=== PATIENT | male | born 1965 | race Caucasian/White ===

== ENCOUNTER 2021-05-14 15:33 | Outpatient (CLI) | payer OTHER, SELFPAY ==
[2021-05-14 15:59] LABS: Basophils Percent Auto 0.5 % (0.2-1.2); Eosinophils Absolute Auto 0.1 K/mm3 (0-0.3); Eosinophils Percent Auto 2.5 % (0-4.4); Hematocrit 40.8 % (42.0-52.0); Hemoglobin 13.9 g/dL (14.0-18.0); Immature Granulocyte Absolute 0.02 K/mm3 (0.00-0.031); Immature Granulocyte Percent A 0.5 % (0-0.5); Lymphocytes Absolute Auto 0.96 K/mm3 (0.9-3.2); Lymphocytes Percent Auto 24.2 % (18.3-44.2); Mean Corpuscular HGB Conc 34.1 g/dl (32-36); Mean Corpuscular Hemoglobin 30.1 pg (26-34); Mean Corpuscular Volume 88.3 fl (80-100); Monocytes Absolute Auto 0.4 K/mm3 (0.1-0.6); Monocytes Percent Auto 11.1 % (2.6-8.5); Neutrophils Absolute Auto 2.4 K/mm3 (1.3-6.7); Neutrophils Percent Auto 61.2 % (45.5-73.1); Platelet Count Result 204 k/mm3 (150-375); Red Blood Count 4.62 M/mm3 (4.6-6.20); Red Cell Distribution Width 12.9 % (11.5-14.5)
[2021-05-14 16:13] LABS: Alanine Aminotransferase 26 U/L (4-50); Alkaline Phosphatase 74 U/L (38-126); Anion Gap 8 mmol/L (8-16); Aspartate Amino Transferase 29 U/L (17-59); Bilirubin,Total 0.3 mg/dL (0.2-1.3); Blood Urea Nitrogen 14 mg/dL (9-20); CRP 2.3 mg/dL (<1.0); Calcium 8.8 mg/dL (8.4-10.2); Carbon Dioxide 28 mmol/L (22-30); Chloride 102 mmol/L (98-107); Estimated Glomerular Filt Rate > 60; Glucose 91 mg/dL (65-110); Potassium 4.1 mmol/L (3.4-5.0); Sodium 138 mmol/L (137-145)
[2021-05-14 16:45] LABS: Erythrocyte Sedimentation Rate 25 mm/hr (0-20)
== END 2021-05-14 15:34 | disposition home or self-care (01) ==
LOC: ANHLAB 15:34
PROVIDERS: PCP Internal Medicine; Visit Provider Internal Medicine
DX: R53.83 Other fatigue (principal); R11.0 Nausea; M79.10 Myalgia, unspecified site
CPT/HCPCS: 36415; 80053; 85025; 85652; 86140

== ENCOUNTER → 2021-05-15 02:14 | Outpatient (CLI) | payer OTHER, SELFPAY ==
[2021-05-15 17:52] LABS: SARS-CoV-2 RNA PCR Negative
== END ==
PROVIDERS: PCP Internal Medicine; Visit Provider Internal Medicine
DX: R53.83 Other fatigue (principal); R05 Cough; Z20.822 Contact with and (suspected) exposure to COVID-19
CPT/HCPCS: C9803; U0003; U0005

== ENCOUNTER 2021-06-11 15:32 | Outpatient (CLI) | payer OTHER, SELFPAY ==
--- NOTE | ~2021-06-11 | XR_ITS ---
EXAMINATION: XR knee RT min 4V DATE: 06/11/2021 16:04 INDICATION: Right knee pain. TECHNIQUE: 4 views of right knee including standing views were obtained. COMPARISON: None. FINDINGS: Bone alignment is normal. No fracture. There is mild tricompartmental osteoarthritis. No kn ee joint effusion. There are loose bodies in the intercondylar notch. IMPRESSION: 1. Mild right knee osteoarthritis. 2. Right knee joint loose bodies. Reviewed, dictated and finalized at location B.
== END 2021-06-11 15:33 | disposition home or self-care (01) ==
LOC: ANHIMG 15:41
PROVIDERS: PCP Internal Medicine; Visit Provider Internal Medicine
DX: M25.561 Pain in right knee (principal); M17.11 Unilateral primary osteoarthritis, right knee; M23.41 Loose body in knee, right knee
CPT/HCPCS: 73564

== ENCOUNTER → 2021-09-10 13:23 | Outpatient (CLI) | payer OTHER, SELFPAY ==
--- NOTE | ~2021-09-10 | MR_ITS ---
EXAMINATION: MR knee RT wo con DATE: 09/10/2021 14:06 INDICATION: Medial right knee pain TECHNIQUE: Magnetic resonance imaging (MRI) of the right knee was performed without intravenous contr ast. Sequences included coronal PD-weighted FSE, coronal PD-weighted FS FSE, sagittal T2-weighted FS E, sagittal PD-weighted FS FSE and axial PD weighted fat saturated FSE. COMPARISON: Right knee radiographs dated 06/11/2021 FINDINGS: Medial compartment: Likely complex medial meniscal tear. This includes a longitudinal horizontal tear plane extending to the free edge at the posterior horn transition to the inferior articular surface and the inner third of the tear extends anteriorly into the meniscal body. There also appears to be a second small radial tear plane involving the inner third of the body of the meniscus. Small portion of the peripheral as pect of the meniscal body as subluxed inferiorly into the gutter along side the medial rim of the med ial tibial plateau. Partial-thickness cartilage loss with with focal scattered full/near full-thickne ss ulceration and fissuring underlying subarticular edema at the anterior to central weightbearing me dial femoral condyle and anterior aspect of the medial tibial plateau. Lateral compartment: Lateral meniscus is normal. Articular cartilage is normal. Patellofemoral compartment: Chondral ulceration and fissuring involving greater than 50% the cartilage thickness but without dege nerative subchondral changes along the inferior half of the trochlea and medial and lateral trochlea and intervening trochlear groove. Partial-thickness chondral fissuring involving less than 50% the ca rtilage thickness at the patellar apical ridge central aspect of the medial patellar facet and up to 50% the cartilage thickness at the inferolateral aspect of the lateral trochlea. Ligaments and tendons: Anterior and posterior cruciate ligaments are normal. The medial collateral ligament and fibular osvaldo ateral ligament complex are normal. The extensor mechanism is normal. The visualized medial and later al hamstring tendons as well as the iliotibial band are normal. Fluid: Small right knee joint effusion. 4 x 3 x 2 mm loose osteochondral body in the recess of posterior to the posterior horn of the lateral meniscus. Small cluster of 4 similar to smaller sized loose osteoch ondral bodies in the recess anterior to the tibial footplate of the anterior cruciate ligament. Osseous/other: Normal marrow signal aside from the degenerative subarticular edema at the medial compartment. No fra cture or pathologic marrow replacing process. IMPRESSION: 1. Complex medial meniscal tear. 2. Mild osteoarthritis with high-grade chondromalacia in the medial compartment and moderate to high grade chondromalacia in the patellofemoral compartment. 3. Small right knee joint effusion. Reviewed, dictated and finalized at location A. KET BINDER
== END ==
PROVIDERS: PCP Internal Medicine; Visit Provider Orthopaedic Surgery
DX: M25.461 Effusion, right knee (principal); M17.11 Unilateral primary osteoarthritis, right knee; S83.231A Complex tear of medial meniscus, current injury, right knee, initial encounter; X58.XXXA Exposure to other specified factors, initial encounter
CPT/HCPCS: 73721

== ENCOUNTER 2021-10-18 08:01 | Outpatient (CLI) | payer OTHER, SELFPAY | END 2021-10-18 08:02 | disposition home or self-care (01) | PROVIDERS: PCP Internal Medicine; Visit Provider Orthopaedic Surgery | DX: M17.11 Unilateral primary osteoarthritis, right knee (principal); Z01.818 Encounter for other preprocedural examination | CPT/HCPCS: 36415; 86850; 86900; 86901; 87081 ==

== ENCOUNTER 2021-10-29 00:26 | Day surgery (SDC) | payer OTHER, SELFPAY ==
[2021-10-18 08:12] VITALS: BMI 25.7
--- NOTE | 2021-10-18 08:26 | PC.NURSE ---
Addendum entered by Stephanie Pierre RN 10/18/21 08:47: VITAMIN D HOLD 3 DAYS PRE OP LAST DOSE ON 10/25/21 Original Note: Report to the Outpatient Waiting Room, entrance under the green pavilion located off [facility], at time _0600 on date __10/29/21 . OR Time: __729 . - You and your visitor will be asked a series of questions to screen for COVID 19 for your protection. - A mask is required within the hospital. - Only one visitor is allowed at this time. Patient visitors will be guided where to wait when not with patient. Preoperative COVID Testing Requirements: No COVID Test needed if: (proof is required; if not received patient will have Rapid Test prior to entry) - Patient has received COVID Vaccine at least 14 days prior to procedure date or - Patient has positive COVID test result within last 90 days of surgery date. COVID Test needed if above criteria is not met If not COVID vaccinated a COVID test must be conducted within 72 hours of surgery and patient is asked to isolate self from time of testing until procedure. You will go to the [employer] [facility] Testing Site for your COVID testing. The [facility] Testing site is located at the corner of [address] [facility]. You will only be called if COVID results are positive and your surgeon may reschedule your elective surgery date. Patients may have clear liquids (water, carbonated beverages, clear teas, apple juice) until 3 hours prior to surgery with a maximum of 20 ounces. - No food from midnight until time of surgery - Infants may have breast milk until 4 hours before surgery, infant formula 6 hours prior to surgery. - Children will be allowed to drink immediately following surgery. If applicable, please bring a bottle or sippy cup to assist with drinking. Juice, water, soda, and popsicles are readily available. For infants on formula, please bring formula the day of surgery. Pacifiers are allowed. Take the following medications with a SIP of water the morning of surgery: ___NONE Medications to discontinue per physician NONE Date to take last dose Please no make-up, nail telugu, hairspray, perfume, deodorant, or body powder the day of surgery. No jewelry (including any body piercings) or valuables the day of surgery, leave them at home. Please take a shower or bath the night before, or the morning of, surgery with an antibacterial soap. Wear comfortable, loose fitting clothing. Children are encouraged to wear pajamas. - Jewelry must be removed prior to entering the operating room. Rings and piercings that are not removed may be cut off. - The hospital will not accept responsibility for valuables. - Please leave all valuables, including medications, at home the day of surgery. If you are going home after surgery, a licensed tow car driver must drive you home. - NO public transportation without another adult. - We recommend that an adult stay with you for 24 hours following discharge. - We also recommend that you do not drive, make important decision, drink alcoholic beverages, or take any drugs that were not prescribed by your health care provider for at least 24 hours after your discharge time. For Pediatric surgeries, we recommend two adults accompany the child home (only one inside the building at this time). Follow any additional instructions given to you from your surgeon. VERBAL instructions given to __PATIENT and asked if any additional questions and then verbalized understanding. Patient advised to call surgeon office or pre surgery nurse liaison [phone] if any additional questions.
[2021-10-18 08:46] VITALS: BP 125/87; PULSE 60; RESP 16; TEMP 36.7; O2SAT 98
[2021-10-29] VITALS (17 sets, daily range): BP systolic 112–157; BP diastolic 60–95; PULSE 62–83; RESP 12–18; TEMP 36.3–37.5; O2SAT 92–100
--- NOTE | ~2021-10-29 | XR_ITS ---
EXAMINATION: KNEE ONE/TWO VIEW-RIGHT DATE: 10/29/2021 10:10 INDICATION: Postoperative evaluation following right knee medial unicompartmental arthroplasty TECHNIQUE: Anteroposterior and lateral views of the right knee were obtained. COMPARISON: None. FINDINGS: Right knee medial unicompartmental arthroplasty appears well seated and in near anatomic alignment. No fractures identified. Expected minimal postoperative subcutaneous and intra-articular gas. IMPRESSION: 1. Right knee medial unicompartmental arthroplasty, negative for postoperative purposes. Reviewed, dictated and finalized at location B. CLAIMS EXAMINER
[2021-10-29] MEDS: ACETAMINOPHEN 500 MG TABLET 1000 MG PO ×3 (06:23→20:04)
[2021-10-29] MEDS: LACTATED RINGERS 1,000 ML 30 ML IV CONT ×3 (06:33→11:39)
--- NOTE | 2021-10-29 06:38 | P.PNAN_ITS ---
Anes - Initial Pre Proc Eval Procedure: Operation Date: 10/29/21 07:30 Proposed Procedures p Right Knee Unicompartmental Arthroplasty - Cooper Winkler MD Date/Time: 10/29/21 06:39 Surgeon: Cooper Winkler MD Pre Op Diagnosis: OA right knee Patient Data Age: 56 Gender: M Height: 1.75 m Weight: 80.3 kg Last Vital Signs Temp 36.7 C 10/18/21 08:46 Pulse 60 10/18/21 08:46 Resp 16 10/18/21 08:46 BP 125/87 10/18/21 08:46 Pulse Ox 98 10/18/21 08:46 Allergies Allergy/AdvReac Type Severity Reaction Status Date / Time No Known Allergies Allergy Verified 10/29/21 06:15 Home Medications Medication Instructions Recorded Confirmed Type naproxen 500 mg tablet 500 mg PO BID 10/15/21 10/29/21 History cholecalciferol (vitamin D3) 50 mcg PO DAILY 10/18/21 10/29/21 History rivaroxaban 10 mg tablet 10 mg PO DAILY #14 tablet 10/25/21 Rx Patient hx anesthesia problems: none Family hx anesthesia problems: none Results Review: All pre-operative results and documents have been reviewed as part of the pre-operative evaluation. FOR[facility]LY [facility] Past Medical History Medical History BMI 25.0-25.9,adult BMI 26.0-26.9,adult Colon cancer screening Cough Diarrhea Encounter for preventive health examination Fatigue Myalgia Nausea Osteoarthritis of right knee Right knee pain Surgical History Surgical History S/P left unicompartmental knee replacement 2015 Family History Family History Mother Hypertension Family history of colonic diverticulitis Grandparent Family history of lung cancer Family history of malignant neoplasm of brain Sibling Hypertension Social History Social History Smoking status: Never smoker Alcohol intake: current Drinks per week: 8 Living arrangements: with friend(s) Additional occupation/education comments: sales Gender identity (if verbalized by the patient): Male Spiritual care concerns: No Anes - Eval Final PreProcedure Day of Procedure 10/29/21 06:39 Patient weight: overweight Heart: regular rate and rhythm Lungs: clear to auscultation and normal air movement Airway: Mallampati scale class II Neurological: alert and oriented Last oral intake: >/= 8 hours ASA classification: II Emergent: no Anesthetic plan: proceed Anesthesia type and monitoring: general LMA and standard monitoring Results Review: All pre-operative results and documents have been reviewed as part of the pre-operative evaluation. Informed Consent: The patient's anesthetic plan and its attendant risks and benefits were discussed with the patient/family/POA. Questions were solicited and answers provided to the satisfaction of the patient/family/POA.
[2021-10-29] MEDS: TRANEXAMIC ACID 1,000MG/ISO100 1,000 MG/100 ML BAG 200 MG IVPB (07:08)
--- NOTE | 2021-10-29 07:11 | WPDHPUPDATE1 ---
History and Physical Update Update Date/Time: 10/29/21 07:11 History and Physical has been reviewed, including an updated exam of the patient. There are NO changes in the patient's condition. Risks, benefits, and alternatives have been discussed and questions answered. Patient agrees to proceed with procedure.
--- NOTE | 2021-10-29 07:20 | WPDANESPNB ---
Anes - Peripheral Nerve Block Date/Time: 10/29/21 07:20 I have discussed with the patient/family/POA the placement of a peripheral nerve block for post-operative pain management, including associated risks, benefits, complications, and side effects. Alternative methods of post-operative analgesia were detailed. Questions were solicited and answers provided to the satisfaction of the patient/family/POA. Time-Out: A pre-procedural Time-Out was completed immediately before starting the procedure and confirmed: Patient Identification, Site, Procedure, Patient Position and the Availability of Requisite Equipment. Clinical Indications: Acute post-operative pain management requested by the operative surgeon. Nerve Block Insertion Note Anes-nerve block: adductor canal right Patient position: supine Skin prep: chlorhexidine Needle: 22 gauge, stimulating, insulated echogenic needle. Needle length: 80 mm Technique: ultrasound Injectate: bupivacaine 0.5% with epi 5 mcg/ml (30cc - no epi) Observations: tolerated well Complications: none Procedure start time:: 714 Procedure end time:: 718
[2021-10-29] MEDS: ceFAZolin 2 GM/D5W 50 ML 2 GM/50 ML BAG IVPB ×3 (07:30→23:54)
[2021-10-29] MEDS: GENTAMICIN BONE CEMENT REFOBACIN 1 EACH TOPICAL (08:18)
--- NOTE | 2021-10-29 09:47 | P.OP_ITS ---
Procedure Note - Detailed Date of Procedure 10/29/21 Pre-op Diagnosis OA right knee Post-op Diagnosis same Procedure Performed Right knee unicompartmental replacement Surgeon Cooper Winkler MD Batch Still Operator Rebecca Porter Anesthesia general and regional Description of Procedure The patient was identified and the proper site identified. In the preop holding area the anesthesia team performed a right lower extremity block. He was then taken to the operating room and transferred to the OR table placing him supine taking care to pad his torso and extremities. After general anesthetic induction and intubation. a nonsterile tourniquet was placed high on the right thigh. The extremity was positioned, prepped, and draped in the usual sterile fashion. The extremity was exsanguinated and the tourniquet was inflated to 300 mmHg remaining up for approximately 57 minutes. An anterior midline incision was made and sharp dissection carried down through the subcutaneous tissue to the extensor mechanism. A modified medial parapatellar arthrotomy was performed. The articular and meniscal cartilage of the lateral compartment was inspected and noted to be in excellent shape. Anterior and posterior cruciate ligaments were in continuity. There were extensive degenerative changes medial compartment and milder patellofemoral changes. The marginal osteophytes were removed from the notch and the medial aspect of the medial femoral condyle, and the remaining meniscal tissue was removed. The femur was sized to a medium. With the appropriate spoon and tibial guide, a tibial resection was made. This was sized to see. Using the mill, the flexion and extension gaps were balanced. A trial reduction was undertaken. The range of motion of the knee was noted to be from full extension to 0-120 ? of flexion with excellent stability through range of motion. The polyethylene insert tr acked nicely. The trial components were removed. The real medial femur and size right C tray for the right knee were cemented into place. The knee was held in about 30? of flexion while the cement cured. The tourniquet was released and excess cement was removed from the joint. Hemostasis was carried out. The knee was flushed with a copious amount of irrigation. After trialing, the appropriate real size three insert for the femoral component was inserted and the stability again assessed. The knee was noted to be stable as it was taken through range of motion. The periarticular tissues were injected with 60 mL of arthroplasty solution and Surgicel powder was left in the wound after a 3 minutes Betadine bath wound. The extensor mechanism was repaired with 0 looped PDS suture, the subcu with 3-0 Monocryl, 3-0 Stratafix and tissue adhesive for the skin. A sterile dressing was applied. The patient tolerated the procedure well, was awakened, extubated, and taken to recovery room in stable condition. Estimated Blood Loss 100 Tourniquet Time 57 Drains No Packing No Pathology none sent Complications No immediate complications Condition stable Disposition PACU
[2021-10-29] MEDS: fentaNYL CITRATE INJ (*CRX) 100 MCG/2 ML VIAL 25 MCG IV PUSH ×8 (09:57→10:54)
[2021-10-29] MEDS: HYDROmorphone HCL INJ (*CRX) 1 MG/ML SYR 0.5 MG IV PUSH ×4 (11:03→11:52)
--- NOTE | 2021-10-29 12:01 | PC.NURSE ---
This patient, Tino Mcelroy III, was admitted to [facility] at 1201. Patient oriented to hospital policies and general routines including ID bracelet, bed and alarms, visiting hours, pain management, procedures, bathroom and other care routines, personal items, smoking policy, room service/diet, and visiting hours. Information on how to activate the Rapid Response Team has been discussed. Patient encouraged to report perceived risks to care and to ask questions if they do not understand what they are told or what they should do.
[2021-10-29] MEDS: SODIUM CHLORIDE 0.9% IV 1,000 ML 125 ML IV CONT (12:43)
[2021-10-29] MEDS: KETOROLAC 15 MG/ML VIAL (*BKC) IV PUSH ×3 (12:44→23:55)
[2021-10-29] MEDS: oxyCODONE HCL (*CRX) 5 MG TAB IR PO ×5 (13:15→23:55)
--- NOTE | 2021-10-29 14:10 | PC.NURSE ---
1410- Call to Dr. Winkler patient complaining of 8/10 pain to right knee on a numeric scale. Patient requesting pain medication at this time. Per Dr. Winkler give the PRN oxycodone 5MG per orders for pain.
[2021-10-29] MEDS: SENNA/DOCUSATE SODIUM TABLET 2 TAB PO (16:44)
--- NOTE | 2021-10-29 18:20 | PC.NURSE ---
1819- Dr. Good returned phone call and stated patient is OK for discharge. He will place orders and send patient Annabel to her preferred pharmacy.
[2021-10-29] MEDS: FAMOTIDINE 20 MG TABLET PO (20:05)
[2021-10-30] MEDS: oxyCODONE HCL (*CRX) 5 MG TAB IR PO ×2 (04:19→08:05)
[2021-10-30] MEDS: ACETAMINOPHEN 500 MG TABLET 1000 MG PO (04:19)
[2021-10-30 04:35] VITALS: BP 130/80; PULSE 68; RESP 17; TEMP 36.5; O2SAT 96
[2021-10-30] MEDS: ceFAZolin 2 GM/D5W 50 ML 2 GM/50 ML BAG IVPB (06:16)
[2021-10-30] MEDS: KETOROLAC 15 MG/ML VIAL (*BKC) IV PUSH (06:16)
--- NOTE | 2021-10-30 07:36 | PM.DS ---
DS: Admitting Diagnosis Discharge Date October 30, 2021 Admitting Diagnosis Right knee arthritis DS: Discharge Diagnosis Discharge Diagnosis (1) S/P right unicompartmental knee replacement: Code(s): Z96.651 - Presence of right artificial knee joint Status: Acute Assessment and Plan: Patient will be discharged home today. Follow-up with me will be in approximately two weeks. He was instructed to call with any questions prior to follow-up. Detail discharge instructions sent with the patient. DS: Summary Hospital Course Reason for hospitalization: Observation following outpatient procedure. Hospital Course: Following the patient's surgery, he was admitted for observation. Overnight did well. Therapy was initiated. Discharged home postop day one per plan. Status at Discharge Functional status at discharge: uses cane/walker (Crutches) Time Spent with Patient Time attestation: Total time spent providing and/or coordinating discharge services: Exam Const: General: cooperative, no acute distress and alert Nutritional Appearance: other Orientation/consciousness: patient oriented x3 Limitations: no limitations HENMT: Head: normal to inspection Ears: hearing grossly normal bilaterally Face and sinus: face symmetric Mouth: Yes moist mucous membranes Teeth and gingiva: fair dentition Eyes: Alignment and Position: alignment normal and position normal Sclera: sclerae normal Neck: Neck: normal visual inspection and nontender Chest: Chest palpation & inspection: normal inspection of the chest Resp: Effort & Inspection: normal respiratory effort and able to speak in complete sentences GI: Inspection: other (Nondistended) Skin: General skin exam: normal color Rashes: no rashes Neuro: General: patient oriented x3 Cognition (Neuro): normal cognition Speech: normal speech Gait exam (Neuro): Other gait observations present Extrem: General: normal to inspection and other Other: Exam of the right lower extremity shows dry incision with very little swelling and no bruising. Grossly neurovascular status is intact. Calves negative. Psych: Appearance: grossly normal Mental Status: mental status grossly normal Radiology Reports: Comments: EXAMINATION: KNEE ONE/TWO VIEW-RIGHT DATE: 10/29/2021 10:10 INDICATION: Postoperative evaluation following right knee medial unicompartmental arthroplasty TECHNIQUE: Anteroposterior and lateral views of the right knee were obtained. COMPARISON: None. FINDINGS: Right knee medial unicompartmental arthroplasty appears well seated and in near anatomic alignment. No fractures identified. Expected minimal postoperative subcutaneous and intra-articular gas. IMPRESSION: 1. Right knee medial unicompartmental arthroplasty, negative for postoperative purposes. Reviewed, dictated and finalized at location B. [employer] DS: Data Imaging Attestation: I personally reviewed and interpreted this imaging study as follows: Discharge Plan Discharge Patient Disposition: Home, Self-Care Discharge Instructions: 3 times daily for 20 minutes each time, reclining in bed with ice packs over the incision and a pillow underneath the calf of the affected leg, not under the knee. Your wound is glued so it is okay to get into the shower and get the wound wet in two days. Be sure to read through all the information that came from a my office and the hospital. Most of the answers you will need can be found that material. Call the office with any questions that you cannot find answers to, or concerns you may have. After the Xarelto is completed, start taking one coated 325 mg aspirin daily and do this for four more weeks. Please call [facility] at as soon as possible to verify your follow-up appointment to be seen in 2 weeks. Also, call the office with any orthope
[2021-10-30 08:00] VITALS: PULSE 68; RESP 16; O2SAT 97
[2021-10-30] MEDS: CHOLECALCIFEROL 1,000 UNITS TABLET 1000 UNITS PO (08:05)
[2021-10-30] MEDS: SENNA/DOCUSATE SODIUM TABLET 2 TAB PO (08:05)
[2021-10-30] MEDS: FAMOTIDINE 20 MG TABLET PO (08:05)
[2021-10-30] MEDS: RIVAROXABAN 10 MG TABLET PO (08:05)
== END 2021-10-30 09:47 | disposition home or self-care (01) ==
LOC: ANHSURGERY 09:37 → ANHSUROVER 12:10
PROVIDERS: PCP Internal Medicine; Visit Provider Orthopaedic Surgery
PROC: (CPT 27446; principal; 2021-10-29 07:30)
DX: M17.11 Unilateral primary osteoarthritis, right knee (principal); G89.18 Other acute postprocedural pain
CPT/HCPCS: 27446; 64447; 36415; 73560; 86850; 86900; 86901; 87081; 97110; 97116; 97161; 97165; 97535; A9270; C1713; C1776; J0171; J0690; J1170; J1885; J2250; J2270; J2795; J3010; J7030; J7120